=== PATIENT | female | born 1950 ===

== ENCOUNTER → 2020-06-19 | Outpatient (CLI) | payer MEDICARE ==
[2020-06-21 15:11] LABS: HPV 16 Negative (Negative); HPV 18 Negative (Negative); HPV OTHER HR TYPES Negative (Negative)
== END | disposition home or self-care (01) ==
LOC: LAB SHORT 12:57 → LAB 12:57
PROVIDERS: Nurse Practitioner Family
DX: Z01.419 Encounter for gynecological examination (general) (routine) without abnormal findings (principal)
CPT/HCPCS: 87624; G0123

== ENCOUNTER 2023-08-07 14:05 | Emergency (ER) | payer MEDICARE ==
[~2023-08-07] VITALS: Ht 172.7 cm; Wt 74.8 kg
[2023-08-07 17:30] VITALS: BP 143/73
== END 2023-08-07 17:38 | disposition home or self-care (01) ==
LOC: ER 14:05
DX: R07.2 Precordial pain (principal); Z88.0 Allergy status to penicillin